=== PATIENT | male | born 1980 | race Caucasian/White ===

== ENCOUNTER 2020-01-21 10:41 | Emergency (ER) | payer MEDICAID ==
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
== END 2020-01-21 12:25 | disposition home or self-care (01) ==
LOC: FB.ED 10:41
DX: G44.329 Chronic post-traumatic headache, not intractable (principal); Z88.6 Allergy status to analgesic agent; Z88.8 Allergy status to other drugs, medicaments and biological substances; F17.200 Nicotine dependence, unspecified, uncomplicated
CPT/HCPCS: 99283

== ENCOUNTER 2021-09-01 08:25 | Emergency (ER) | payer MEDICAID ==
[2021-09-01] MEDS ORDERED: Lactated Ringers 1,000 ML IV ONE (08:30)
[2021-09-01] MEDS ORDERED: Sodium Chloride 0.9% 10 ML Syringe FLUSH PRN (08:32)
[2021-09-01] MEDS ORDERED: Sodium Chloride 0.9% 1,000 ML IV SCH (08:45)
[2021-09-01 08:54] LABS: BASE EXCESS VENOUS,POC -12 mmol/L (-2 - 3+); PCO2 VENOUS,POC 61 mmHg (41-51)
[2021-09-01] MEDS ORDERED: Sodium Bicarbonate 8.4% 50 MEQ/50 ML Syringe IVPUSH ONE (09:05)
[2021-09-01] MEDS ORDERED: Midazolam 1 MG/ML 2 ML SDV IV ONE (12:52)
[2021-09-01] MEDS ORDERED: Succinylcholine 200 MG/10 ML MDV IV ONE (12:52)
[2021-09-01] MEDS ORDERED: Propofol 200 MG/20 ML SDV IV ONE (12:52)
[2021-09-01] MEDS ORDERED: Rocuronium 100 MG/10 ML MDV IV ONE (12:52)
== END 2021-09-01 09:30 ==
LOC: FB.ED 08:25
DX: T71.162A Asphyxiation due to hanging, intentional self-harm, initial encounter (principal); F19.90 Other psychoactive substance use, unspecified, uncomplicated; Z88.6 Allergy status to analgesic agent; Z88.8 Allergy status to other drugs, medicaments and biological substances
CPT/HCPCS: 01922-QZ; 31500; 36410; 36415; 70450; 71045; 72020; 72125; 80053; 80307; 85025; 85610; 85730; 93005; 93010; 94002; 96374; 99284; 99285-25; J0330; J2250; J2704; J7030; J7120

== ENCOUNTER 2023-03-07 06:45 | Emergency (ER) | payer SELFPAY ==
[2023-03-07] MEDS ORDERED: Cyclobenzaprine 10 MG Tab PO ONE (08:12)
[2023-03-07] MEDS ORDERED: Ondansetron 4 MG Tab.DIS PO ONE (08:13)
[2023-03-07] MEDS: Morphine 10 MG/ML SDV IM ONE ×2 (08:16→08:22)
== END 2023-03-07 08:38 | disposition home or self-care (01) ==
LOC: FB.ED 06:45
DX: M62.830 Muscle spasm of back (principal); F17.210 Nicotine dependence, cigarettes, uncomplicated; Z88.5 Allergy status to narcotic agent
CPT/HCPCS: 99283; A9270; Q0162; J2270

== ENCOUNTER 2024-11-28 16:44 | Emergency (ER) | payer MEDICAID | END 2024-11-28 17:30 | disposition home or self-care (01) | LOC: FB.ED 16:44 | DX: L03.115 Cellulitis of right lower limb (principal); F17.200 Nicotine dependence, unspecified, uncomplicated; Z88.8 Allergy status to other drugs, medicaments and biological substances; Z79.899 Other long term (current) drug therapy | CPT/HCPCS: 99283 ==